=== PATIENT | female | born 1990 ===

== ENCOUNTER → 2017-08-12 | Outpatient (CLI) | payer OTHER | LOC: FIMAGING 14:05 | PROVIDERS: ATTEND Obstetrics & Gynecology | DX: D24.1 Benign neoplasm of right breast (principal); D24.2 Benign neoplasm of left breast ==

== ENCOUNTER → 2017-08-25 | Outpatient (CLI) | payer OTHER ==
[~2017-08-25] MED LIST: BUPIVACAINE 0.5% 10 ML SDV ONE; LIDOCAINE 1% 300 MG/30 ML SDV ONE; THROMBIN (BOVINE) 5,000 UNIT VIAL TP ONE
== END ==
LOC: FIMAGING 07:13
PROVIDERS: ATTEND Obstetrics & Gynecology
PROC: 0HBV3ZX Excision of Bilateral Breast, Percutaneous Approach, Diagnostic (ICD-10-PCS; principal; 2017-08-25)
DX: D24.2 Benign neoplasm of left breast (principal); D24.1 Benign neoplasm of right breast